=== PATIENT | female | born 1970 | race Two or more races ===

== ENCOUNTER 2016-10-25 13:43 | Emergency (ER) | payer OTHER ==
[2016-10-25 14:33] VITALS: BP 140/84
--- NOTE | 2016-10-25 15:25 | UC ---
Throat Pain/Nasal Conner HPI - HPI Summary HPI Summary: ST and malaise for 2d. Daughter ill with same. No rash, no vomiting, no cough, no congestion. No known fever, but has been chilled and low energy - History of Current Complaint Chief Complaint: UCGeneralIllness Stated Complaint: SORE THROAT/ACHY Time Seen by Provider: 10/25/16 14:39 Hx Obtained From: Patient Hx Last Menstrual Period: 10/06/16 Onset/Duration: Gradual Onset, Lasting Days Severity: Moderate Pain Intensity: 7 Pain Scale Used: 0-10 Numeric Cough: None Associated Signs & Symptoms: Positive: Dysphagia. Negative: Hoarseness, Sinus Discomfort, Nasal Discharge, Fever, Vomiting, Rash - Epiglottits Risk Factors Epiglottis Risk Factors: Negative - Allergies/Home Medications Allergies/Adverse Reactions: Allergies Allergy/AdvReac Type Severity Reaction Status Date / Time Penicillins Allergy Unknown Verified 10/25/16 14:33 Reaction Details Home Medications: Home Medications Labetalol TAB* [Trandate TAB*] 300 mg PO BID 10/25/16 [History Confirmed ] PMH/Surg Hx/FS Hx/Imm Hx Cardiovascular History Of: Reports: Hypertension - Surgical History Surgical History: Yes Surgery Procedure, Year, and Place: T &A age 23. 2 csections. carpal tunnel bilateral. left lobe thyroidectomy. Left knee laproscopic surgery - Family History Known Family History: Positive: Hypertension - Social History Occupation: Employed Full-time Lives: With Family Alcohol Use: None Substance Use Type: None Smoking Status (MU): Never Smoked Tobacco Review of Systems Constitutional: Chills, Fatigue Skin: Negative Eyes: Negative ENT: Sore Throat Respiratory: Cough Cardiovascular: Negative Gastrointestinal: Negative Genitourinary: Negative Motor: Negative Neurovascular: Negative Musculoskeletal: Myalgia Neurological: Headache Psychological: Negative All Other Systems Reviewed And Are Negative: Yes Physical Exam Triage Information Reviewed: Yes Appearance: Well-Appearing, No Pain Distress, Well-Nourished Vital Signs: Initial Vital Signs Temp 97.6 F 10/25/16 14:29 Pulse 90 10/25/16 14:29 Resp 16 10/25/16 14:29 BP 140/84 10/25/16 14:29 Pulse Ox 99 10/25/16 14:29 Vital Signs Reviewed: Yes Eye Exam: Normal Eyes: Positive: Conjunctiva Clear ENT: Positive: Hearing grossly normal, Pharyngeal erythema - no tonsils. Negative: Tonsillar swelling, Tonsillar exudate, Trismus, Muffled/hoarse voice Respiratory Exam: Normal Respiratory: Positive: Lungs clear Cardiovascular Exam: Normal Abdominal Exam: Normal Musculoskeletal Exam: Normal Neurological Exam: Normal Psychological Exam: Normal Skin Exam: Normal Diagnostics - Laboratory Diagnostic Studies Completed/Ordered: Strep pos Throat Pain/Nasal Course/Dx - Differential Dx/Diagnosis Differential Diagnosis/HQI/PQRI: Pharyngitis, URI Provider Diagnoses: Strep pharyngitis Discharge - Discharge Plan Condition: Stable Disposition: HOME Prescriptions: Cephalexin CAP* [Keflex CAP*] 500 mg PO TID #30 cap Patient Education Materials: Strep Throat (ED) Referrals: Chaparro MALONE,Padmini Bryant [Primary Care Provider] -
== END 2016-10-25 15:15 | disposition home or self-care (01) ==
LOC: UCCORT 13:43
DX: J02.0 Streptococcal pharyngitis (principal); Z88.0 Allergy status to penicillin
CPT/HCPCS: 87651; 99212; G0463

== ENCOUNTER 2016-11-14 10:13 | Emergency (ER) | payer OTHER ==
[2016-11-14 10:34] VITALS: BP 167/96
--- NOTE | 2016-11-14 11:04 | UC ---
Throat Pain/Nasal Conner HPI - HPI Summary HPI Summary: complaint of nasal congestion and cough which started approx 3 days ago throat pain which has worsened for the last week or so denies headache and ear pain denies fever or chills, muscle aches gargling with salt water , essentail olis, cough drops OTC decongestant without relief - strep throat treated 10/25/16 which improved - History of Current Complaint Chief Complaint: UCGeneralIllness Stated Complaint: SORE THROAT Time Seen by Provider: 11/14/16 10:54 Hx Obtained From: Patient Hx Last Menstrual Period: 11/02/16 - Allergies/Home Medications Allergies/Adverse Reactions: Allergies Allergy/AdvReac Type Severity Reaction Status Date / Time Penicillins Allergy Unknown Verified 11/14/16 10:34 Reaction Details PMH/Surg Hx/FS Hx/Imm Hx Previously Healthy: Yes Cardiovascular History Of: Reports: Hypertension - Surgical History Surgical History: Yes Surgery Procedure, Year, and Place: T &A age 23. 2 csections. carpal tunnel bilateral. left lobe thyroidectomy. Left knee laproscopic surgery - Family History Known Family History: Positive: Hypertension Negative: Cardiac Disease, Diabetes - Social History Occupation: Employed Full-time Lives: With Family Alcohol Use: None Substance Use Type: None Smoking Status (MU): Never Smoked Tobacco Review of Systems Constitutional: Negative Skin: Negative Eyes: Negative ENT: Sore Throat, Nasal Discharge Respiratory: Cough Cardiovascular: Negative Gastrointestinal: Negative Genitourinary: Negative Motor: Negative Neurovascular: Negative Musculoskeletal: Negative Neurological: Negative Psychological: Negative All Other Systems Reviewed And Are Negative: Yes Physical Exam Triage Information Reviewed: Yes Appearance: No Pain Distress, Well-Nourished Vital Signs: Initial Vital Signs Temp 98.0 F 11/14/16 10:31 Pulse 99 11/14/16 10:31 Resp 16 11/14/16 10:31 BP 167/96 11/14/16 10:31 Pulse Ox 98 11/14/16 10:31 Vital Signs Reviewed: Yes Eyes: Positive: Conjunctiva Clear ENT: Positive: Pharyngeal erythema, Nasal congestion, Nasal drainage, TMs normal. Negative: TM bulging, TM red Neck: Positive: No Lymphadenopathy Respiratory: Positive: Lungs clear, Normal breath sounds, No respiratory distress Cardiovascular: Positive: RRR, No Murmur, Pulses Normal Abdomen Description: Positive: Nontender, Soft Bowel Sounds: Positive: Present Musculoskeletal: Positive: No Edema Neurological: Positive: Alert Psychological Exam: Normal Skin Exam: Normal Throat Pain/Nasal Course/Dx - Differential Dx/Diagnosis Differential Diagnosis/HQI/PQRI: Pharyngitis, Tonsillitis, URI Provider Diagnoses: elevated blood pressure, URI, strep pharyngitis Discharge - Discharge Plan Condition: Stable Disposition: HOME Patient Education Materials: Hypertension (ED), Upper Respiratory Infection (ED ) Referrals: Chaparro MALONE,Padmini Bryant [Primary Care Provider] - Additional Instructions: Your blood pressure is elevated today- please call your primary care provider to have further evaluation and possible treatment for hypertension STREPTOCOCCAL PHARYNGITIS (Strep Throat) What is Strep Throat? Strep throat is an infection of the throat and/or tonsils caused by Streptococcus bacteria. Strep throat is contagious and can be passed from one person to another through coughing and sneezing. Infections that are caused by bacteria require antibiotics to be cured. You remain contagious until you have taken antibiotics for at least 24 hours. Symptoms Might Include: Pain in the throat area Swelling of the glands in the neck Pain with swallowing Fever Fatigue Ear pain White spots on your tonsils (caused by pus) Treatment Recommendations: An antibiotic may have been prescribed. The antibiotic should be taken until it is completely gone, even if you feel better. If you stop the antibiotic early, you may not cure the infection completely. Gargle with warm saltwater (place 1 tsp. of salt in a large glass of warm water ) every 3 to 4 hours. Take acetaminophen (Tylenol, Tempra) for pain and fever. Drink lots of fluids. Do not smoke. Use throat lozenges (Cepostat, Beaumont, etc.) or suck on hard candy for temporary relief of the pain of swallowing. Dispose of used tissues immediately. Cover your mouth when coughing or sneezing. Wash hands frequently. Call Your Doctor or Return Here IF: Your symptoms do not improve within 2 days or you become worse. You have a fever over 101.0 F orally. You are unable to swallow liquids or saliva. You are drooling. You develop trouble breathing. You develop a rash. You develop a stiff neck. You develop pain in your chest. You develop any symptoms that are new or that concern you Addendum entered and electronically signed by Kalli Davis NP 11/14/16 12:41:
== END 2016-11-14 11:27 | disposition home or self-care (01) ==
LOC: UCCORT 10:13
DX: J06.9 Acute upper respiratory infection, unspecified (principal); I10 Essential (primary) hypertension; Z88.0 Allergy status to penicillin
CPT/HCPCS: 87651; 99212; G0463

== ENCOUNTER 2018-10-04 09:09 | Emergency (ER) | payer OTHER ==
[2018-10-04 10:51] VITALS: BP 145/85
--- NOTE | 2018-10-04 11:14 | ED ---
Respiratory - HPI Summary HPI Summary: 47 yr old female with the complaint of runny nose, sore throat, and dry cough. Onset two days ago. She had a temp of 101.2 last evening. No SOB. No drooling. She is taking pseudoephedrine for her symptoms. No other complaints. - History of Current Complaint Chief Complaint: UCRespiratory Stated Complaint: FEVER,COUGH,SORE THROAT Time Seen by Provider: 10/04/18 11:03 Pain Intensity: 8 - Allergy/Home Medications Allergies/Adverse Reactions: Allergies Allergy/AdvReac Type Severity Reaction Status Date / Time latex Allergy Unknown Hives Verified 10/04/18 10:41 morphine Allergy Unknown Hives Verified 10/04/18 10:41 metals Allergy Unknown hives,derma Uncoded 10/04/18 10:41 titis Home Medications: Home Medications Pseudoephedrine HCl [Sudogest] 30 mg PO Q6H PRN 10/04/18 [History Confirmed 12/18] amLODIPine TAB* [Norvasc 5 mg TAB*] 5 mg PO DAILY 10/04/18 [History Confirmed ] PMH/Surg Hx/FS Hx/Imm Hx Cardiovascular History: Reports: Hx Hypertension - Surgical History Surgery Procedure, Year, and Place: T &A age 23. 2 csections. carpal tunnel bilateral. left lobe thyroidectomy. Left knee laproscopic surgery Infectious Disease History: Yes Infectious Disease History: Reports: Hx Hepatitis - as a child Denies: Traveled Outside the [place] in Last 30 Days - Family History Known Family History: Positive: Hypertension Negative: Cardiac Disease, Diabetes - Social History Alcohol Use: None Substance Use Type: Reports: None Smoking Status (MU): Never Smoked Tobacco Review of Systems Positive: Fever, Chills Positive: Sore Throat, Nasal Discharge Positive: Cough All Other Systems Reviewed And Are Negative: Yes Physical Exam Triage Information Reviewed: Yes Vital Signs On Initial Exam: Initial Vitals Temp Pulse Resp BP Pulse Ox 99.4 F 92 16 145/85 97 10/04/18 10:43 10/04/18 10:43 10/04/18 10:43 10/04/18 10:43 10/04/18 10:43 Vital Signs Reviewed: Yes Appearance: Positive: Well-Appearing, No Pain Distress Skin: Positive: Warm, Skin Color Reflects Adequate Perfusion Head/Face: Positive: Normal Head/Face Inspection Eyes: Positive: EOMI ENT: Positive: Pharyngeal erythema, Nasal congestion, TMs normal, Uvula midline. Negative: Muffled voice, Hoarse voice Neck: Positive: Nontender Respiratory/Lung Sounds: Positive: Clear to Auscultation, Breath Sounds Present Cardiovascular: Positive: RRR. Negative: Murmur Abdomen Description: Positive: Nontender Musculoskeletal: Positive: Strength/ROM Intact Neurological: Positive: Sensory/Motor Intact, Alert, Oriented to Person Place, Time, CN Intact II-III Psychiatric: Positive: Normal - Yesy Coma Scale Best Eye Response: 4 - Spontaneous Best Motor Response: 6 - Obeys Commands Best Verbal Response: 5 - Oriented Coma Scale Total: 15 Diagnostics - Vital Signs Vital Signs Temp Pulse Resp BP Pulse Ox 10/04/18 10:43 99.4 F 92 16 145/85 97 - Laboratory Lab Statement: Any lab studies that have been ordered have been reviewed, and results considered in the medical decision making process. Disposition - Course Course Of Treatment: 47 yr old female with positive rapid influenza A. Rx with Tamiflu. - Diagnoses Provider Diagnoses: Hypertension, Upper respiratory infection, Influenza A Discharge - Sign-Out/Discharge Documenting (check all that apply): Patient Departure All imaging exams completed and their final reports reviewed: No Studies - Discharge Plan Condition: Good Disposition: HOME Prescriptions: Oseltamivir CAP* [Tamiflu CAP*] 75 mg PO BID #10 cap Patient Education Materials: Influenza (ED), Hypertension (ED) Forms: *Work Release Referrals: Kavita Figueroa MD [Primary Care Provider] - 2 Days - Billing Disposition and Condition Condition: GOOD Disposition: Home
== END 2018-10-04 11:39 | disposition home or self-care (01) ==
LOC: UCCORT 09:09
DX: I10 Essential (primary) hypertension (principal); J06.9 Acute upper respiratory infection, unspecified; J09.X2 Influenza due to identified novel influenza A virus with other respiratory manifestations; Z88.5 Allergy status to narcotic agent
CPT/HCPCS: 87651; 99212; G0463